=== PATIENT | male | born 1945 | race Caucasian/White ===

== ENCOUNTER 2024-10-31 18:13 | Inpatient (IN) | payer OTHER ==
[2024-10-31 21:11] LABS: Specific Gravity 1.027 (1.005-1.030); Sqamous Epithelial <5 /HPF (None Seen); Urine Bacteria None Seen /HPF (<20); Urine Bilirubin NEGATIVE (Negative); Urine Blood Trace (Negative); Urine Clarity Clear (Clear); Urine Color Yellow (Yellow); Urine Culture Reflex Order NOT NEEDED; Urine Glucose NEGATIVE (Negative); Urine Ketones TRACE (Negative); Urine Micro Reflex YN NO BILL MICROSCOPIC; Urine Mucus Slight /HPF (None Seen); Urine Nitrite NEGATIVE (Negative); Urine Protein 1+ (Negative); Urine RBC <5 /HPF (None Seen); Urine Urobilinogen Normal (Normal); Urine WBC <5 /HPF (<5)
[2024-10-31] MEDS ORDERED: methocarbamoL 500 MG TAB PO PRN (21:11)
[2024-10-31] MEDS ORDERED: MEMANTINE HCL 10 MG TABLET ONE (21:35)
[2024-10-31] MEDS: ROSUVASTATIN 10 MG TAB PO SCH (21:50)
[2024-10-31] MEDS: APIXABAN 5 MG TABLET PO SCH (21:51)
[2024-10-31] MEDS: gemfibroziL 600 MG TAB PO SCH (21:51)
[2024-10-31] MEDS: MEMANTINE HCL 10 MG TABLET PO SCH (21:51)
[2024-10-31] MEDS: EVOLOCUMAB 140 MG SQ SCH (23:15)
[2024-10-31] MEDS: CYANOCOBALAMIN 1000MCG/ML INJ IM SCH (23:45)
[2024-11-01 06:16] LABS: Absolute Eosinophils 0.3 K/uL (0-0.5); Absolute Monocytes 0.7 K/uL (0.1-1.3); Absolute Neutrophil 2.9 K/uL (1.8-8.0); Basophils % 0.6 % (0-1.3); Eosinophils % 6.9 % (0-4.4); Hematocrit 28.3 % (39.6-49.0); Hemoglobin 9.7 g/dL (13.6-17.9); Lymphocytes % 19.5 % (15.3-44.8); MCH 33.7 pg (27.0-35.0); MCHC 34.5 g/dL (32.0-36.0); MCV 97.7 fL (80-100); MPV 8.7 fL (7.6-11.3); Monocytes % 13.6 % (3.3-12.3); Neutrophils % 59.4 % (41.7-73.7); Nucleated Red Blood Cells % 0.1 % (0-0); Platelets 200 thou/uL (152-406); RBC Red Blood Cell Count 2.89 M/uL (4.33-5.43); Red Cell Distribution Width 13.7 % (12.1-15.2)
[2024-11-01 06:24] LABS: Albumin 2.7 g/dL (3.4-5.0); Magnesium 2.2 mg/dL (1.6-2.4); Prealbumin 13.8 mg/dL (20-40)
[2024-11-01] MEDS: PANTOPRAZOLE 40MG TABLET PO SCH (06:57)
[2024-11-01] MEDS: PREVAGEN 10 MG PO SCH (08:00)
[2024-11-01] MEDS: METHOTREXATE 2.5 MG TAB PO SCH (08:00)
[2024-11-01] MEDS: CYANOCOBALAMIN 1000MCG/ML INJ IM SCH (08:00)
[2024-11-01] MEDS: LIDOCAINE 4% PATCH TOP SCH (10:01)
[2024-11-01] MEDS: POTASSIUM CL SA 10 MEQ TAB PO ONE (10:03)
[2024-11-01] MEDS: DONEPEZIL HCL 5 MG TAB PO SCH (10:04)
[2024-11-01] MEDS: FOLIC ACID 1 MG TABLET PO SCH (10:05)
[2024-11-01] MEDS: FERROUS SULFATE 325 MG TAB PO SCH (10:05)
[2024-11-01] MEDS: AZITHROMYCIN 250 MG TAB PO SCH (10:06)
[2024-11-01] MEDS: TERAZOSIN HCL 5 MG CAP PO SCH (10:06)
[2024-11-01] MEDS: ENSURE ENLIVE 237 ML CAN PO SCH (10:09)
[2024-11-01] MEDS: CYANOCOBALAMIN 1000MCG/ML INJ SQ SCH (12:49)
[2024-11-01] MEDS: POTASSIUM CL SA 10 MEQ TAB PO SCH (12:49)
[2024-11-01] MEDS ORDERED: ENSURE HIGH PROTEIN 237 ML CAN PO PRN (14:46)
--- NOTE | 2024-11-01 15:32 | RAD REPORT ---
EXAMINATION: ONE VIEW CHEST XR CLINICAL INDICATION: sob on exertion TECHNIQUE: Frontal chest projection is submitted. Examination is limited by patient positioning and t echnique. COMPARISON: 01/19/2012 FINDINGS: Mild interstitial pulmonary edema suspected. The heart is upper limit of normal in size. No displaced fractures identified. IMPRESSION: Mild CHF versus volume overload pattern is suspected.
[2024-11-01] MEDS: MAGNESIUM OXIDE 400 MG TAB PO SCH (18:53)
[2024-11-01] MEDS ORDERED: TRAZODONE 50 MG TABLET ONE (22:50)
[2024-11-01] MEDS: TRAZODONE 50 MG TABLET PO PRN (23:15)
[2024-11-02 06:26] LABS: ALT/SGPT 49 U/L (16-61); AST/SGOT 64 U/L (15-37); Albumin 2.8 g/dL (3.4-5.0); Albumin/Globulin Ratio 0.9 (1.1-1.8); Alkaline Phosphatase 58 U/L (45-117); Anion Gap 7.4 mEq/L (5.0-15.0); BUN Blood Urea Nitrogen 17 mg/dL (7-18); Bicarbonate 24 mEq/L (21-32); Bilirubin Direct < 0.2 mg/dL (0-0.2); Bilirubin Indirect, Calculated 0.1 mg/dL (0.2-0.8); Bilirubin Total 0.3 mg/dL (0.2-1.0); Creatine Phosphokinase 393 U/L (39-308); Globulin 3.2 g/dL (2.3-3.5); Glomerular Filtration Rate 67 ml/min (=/>90); Glucose Level 127 mg/dL (74-106); Potassium 3.4 mEq/L (3.5-5.1); Sodium Level 142 mEq/L (136-145)
[2024-11-02] MEDS: PANTOPRAZOLE 40MG TABLET PO SCH (06:37)
--- NOTE | 2024-11-02 09:21 | HP ---
Date of Admission: 10/31/2024 Time Of Service: 8:30 a.m. Chief Complaint: "I am weak and I need to get stronger." History Of Present Illness: Mr. Zee is a 79-year-old right-handed patient with Alzheimer disease, coronary artery disease, hypertension, atrial fibrillation, prostate hypertrophy, rheumatoi d arthritis, on methotrexate, who per his was in the room, had been declining over the last few weeks in terms of his appetite, mobilization and had become increasingly weak. While home alone on , he was going to the restroom, fell off the toilet, and was not found by EMS for several ho urs. He was found floor with his pants inside-out. He was brought to [facility], where his workup showed elevated creatinine of , CK-MB was 6.5, anion gap 5 3, glucose 226, creatinine was elevated to 2, BUN 32, GFR down to 30.79. BNP was elevated at 794 wit h troponins 21.3 and normal liver functions. CT scan of the head showed mild brain atrophy with lawrence ventricular white matter small vessel ischemic disease without acute intracranial processes such as a cute stroke or hemorrhage. CT spine and neck was negative. Chest x-ray did show a viral pneumonia p attern with decreased lung volumes, small bilateral lower lobe atelectasis, and cardiomegaly. He was admitted for treatment of rhabdomyolysis with IV hydration. Seen by the Renal Service and Cardiolog y Service. He did have a urinalysis, which was done and ruled out for urinary tract infection. COVI D testing was negative. Found to have hypokalemia, which was addressed on October 29, 2024. On tele metry, he did have atrial fibrillation and is on Eliquis b.i.d. His CHF was addressed with alexandra parker, hypertension addressed as well as his prostate hypertrophy. He was evaluated by Sebastian goddard and found to require minimum assistance to contact guard assistance for all activities of daily living, ambulating only 20 feet, gets very short of breath and he says his big complaint is he has t o stop and recover before going again. He has some trouble also with swallowing per his and he has to eat and chew very slowly to abort choking. The patient of course will benefit from speech the rapy in addition to physical and occupational therapy as an aggressive inpatient rehabilitation. If he is to be discharged home or to a long term , he will not drive and will likely wor sen and require rehospitalization. Therefore, it is necessary [facility] for him to receive physical, occupational, and speech therapy while he received aggressive management of his comorbid conditions. Past Medical History: As noted above. X-ray/imaging: Chest x-ray shows decreased lung volumes, small bilateral lower lobe atelectasis, les s likely infiltrative cardiomegaly. An EKG showed the following his treatment, sinus tachycardia. C ervical spine CT scan on 10/28 shows no acute fracture or subluxation of the cervical spine. CT scan of the head on 10/28 shows no acute intracranial abnormalities. Allergies: CLARITHROMYCIN, DOXYCYCLINE, GRASS, POLLEN, LEVOFLOXACIN, PENICILLIN, AND SULFA ANTIBIOTI CS. Current Medications: Eliquis 5 mg twice daily, azithromycin 500 mg daily from 11/01 to 11/04, vitami n B12 injections 1000 mcg daily, Aricept 10 mg daily, ferrous sulfate 325 mg daily, folic acid 1 mg d aily, gemfibrozil 600 mg twice daily, lidocaine patch apply 2 patches topically daily, Namenda 10 mg twice daily, Robaxin 500 mg 3 times daily, methotrexate 20 mg every 7th day, Ensure Enlive 237 mL twi ce daily, Protonix 40 mg daily, daily, Crestor 40 mg at bedtime, Hytrin 10 mg at bedtime. Laboratory Studies: White blood cell count 4.9, hemoglobin 9.7, platelets 200. Sodium 140, potassiu m 3.0 and that is being replaced with potassium, chloride 111, carbon dioxide 24, BUN 21, creatinine 1.05, glucose 120, calcium 8.7, magnesium 2.2, albumin 2.7, prealbumin 13.8, and urinalysi s shows trace ketones, trace blood, 1+ total protein. Family History: Noncontributory. Review of Systems: He does report some significant shortness of breath, difficulty ambulating only short distances befor e shortness of breath and fatigue stop him. Mild constipation. Mild myalgias, arthralgias. No rash . No other complaints on a 10-point system review. Current Level Of Functioning: Currently supervision for eating, oral hygiene. Moderate assistance, toileting. Maximum assistance for showering. Moderate assistance for upper body dressing and lower body dressing along with donning and doffing footwear. For rolling [id number] from sit to stand a nd lying to sitting on side of bed, contact guard assistance. For transfer to a chair, wheelchair to toilet, contact guard assistance. For ambulation with a rolling walker, he covered 20 feet with con tact guard assistance. Physical Examination: Vital Signs: Blood pressure 152/71, pulse 73, respiratory rate 18, temperature 97.5, oxygen saturati on 97%. Weight 230 pounds, height 5 feet 10 inches, BMI 33.0. General: Mr. Zee is able to hold self inside the bed. His is at bedside. HEENT: He is normocephalic, atraumatic. Sclerae anicteric. Oropharynx is pink and moist. Neck: Supple. Chest: Clear. Heart: Regular. Abdomen: Soft. Extremities: Very much trace to no edema in the lower extremities. Neurological: He is alert and oriented to situation, place, person. Does follow commands appropriat scott also with his responses. No obvious cranial nerve deficits. Mild diffuse weakness upper and low er extremities 4/5. Stocking-glove loss, light touch, temperature depressed. Reflexes symmetric. Rehab And Medical Assessment And Plan: Mr. Zee is a 79-year-old patient admitted to the inpatient rehabilitation unit with impairment category 09, orthopedic. His impairment group code is 08.9, othe r orthopedic. Etiologic diagnosis is rhabdomyolysis. Additional comorbidities; atrial fibrillation, acute renal injury, acute on chronic encephalopathy, benign prostate hypertrophy, coronary artery di sease, cardiomegaly, congestive heart failure, decreased mobility, decreased physical functioning, hy pertension. Plan: 1.He will have physical, occupational, and speech therapy 3.5 hours, 5 of 7 days. In addition, we w ill continue aggressive management of his blood pressure and prostate hypertrophy. He will have hold parameters for systolic blood pressure less than 120. Ferrous sulfate for anemia and donepezil and for dementia twice and continued for his potential urine and chest infections, Eliquis for atrial fibrillation to reduce risk of stroke and deep vein thrombus, Robaxin for muscle spasms, whic h he says he has some across the back, methotrexate will be continued as scheduled, Protonix for GE r eflux, potassium replacement on board, Crestor for his dyslipidemia. Comorbidities That Are Impacting Rehabilitation: Possibility of Crestor aggravating his rhabdomyolys is should be considered. However, the creatinine and CPK will be followed. A KUB will be done and i f need be liver function studies as well to determine if medication needs to be adjusted. Potassium replacement on board and will contribute to significant weakness and his recheck will be done tomorro w. For GE reflux, he has Protonix on board to significantly decrease the risk of peptic ulcer format ion and anemic as noted and it was addressed as well. Again, DVT prophylaxis and stroke r isk reduction addressed. Rehab Specific Plan: Mr. Zee will have physical, occupational, and speech therapy for 3.5 hours, 5 of 7 days to improve his ability to transfer from his bed to a chair to a rolling walker to begin to mobilize the wheelchair, on and off the toilet, in and out of the tub. His goals will be able to am bulate more than household distances if he is able to do at least 250 feet around the unit with modif ied independence, up and down 10 steps with modified independence, propel a wheelchair 250 feet with modified independence. Also, cognition should be addressed and will be addressed to help him make sa fe decisions to improve his cognitive functioning, safety awareness, and information processing . Mr. Zee and his had good understanding of the process [facility] and how he will benefit from physical, occupational, and speech therapy. They will hav e 24 hours a day, 7 days a week skilled rehabilitation nursing, daily physician evaluation and manage ment, and social service evaluation and management for discharge planning, home equipment, continuing therapy, and physician followup. If need be, additional help from the hospitalist service will be s ought. Barriers To Discharge: At this point, he has been declining for a few weeks and become significantly debilitated. He has ability to go back home, may be hampered by how fast he recovers and so long term may have to be considered; however, the goal is to have him go home instead of skilled nursi ng. Potential for infection is present and may require IV antibiotics to be considered, but that at this point it will be oral. If he needs multiple antibiotics IV, he may have to go into a long-term acute care setting. Length Of Stay: About 12-14 days. Disposition: Home with family. Continuing therapy via Home Health. Prognosis: Good. Code Status: Full code. Rehab Specific Goals: 1.Mr. Zee to become independent with upper and lower body dressing, donning and doffing of footwea r. 2.Independent with ambulating 250 feet with a rolling walker and mobilize a wheelchair 250 feet and up and down 10 steps with bilateral handrails. 3.With min assist to be able to perform safety awareness issues to make good decisions to reduce his risk of falling along with the help of family to be able to return home safely. The above goals were reviewed with Mr. Zee and his and they are in agreement. By signing this document, I acknowledge I personally performed a full physical examination on Mr. Juan love no later than 24 hours after his admission to the inpatient rehabilitation facility and determined that he is able to tolerate the above course of treatment at an intensive level for a reasonable per iod of time. A detailed individualized plan of care for him will be completed by hospital day 4 base d on the preadmission screen, history and physical, and therapy evaluations. SIA Voice ID: [id number]
[2024-11-02] MEDS: POTASSIUM CL SA 10 MEQ TAB PO ONE ×2 (15:08→17:00)
[2024-11-02] MEDS: NA CHLORIDE 0.9% 1,000 ML IV SCH (15:09)
[2024-11-02] MEDS: TRAZODONE 50 MG TABLET PO SCH (20:43)
[2024-11-02] MEDS ORDERED: TRAZODONE 50 MG TABLET PO SCH (21:00)
--- NOTE | 2024-11-02 22:43 | PN ---
Date of Progress Note: 11/02/2024 Time Of Service: 1:20 p.m. Subjective: Mr. Zee is resting in his bed. His son is at the bedside. He is so far very happy wi th his progress, improving his strength, his coordination, and transferring and denies any significan t pain. He still has some significant difficulty with cognitive functioning, decision making, and stroud s been up at night and may tend to walk out towards nurses' station. Did report some difficulty with sleep at night. Son said he was up, pacing around up until about one or so in the morning. Objective: No fevers, chills, nausea, vomiting. No myalgias, arthralgias, rash, or other complaints . Physical Examination: Vital Signs: Blood pressure 153/71, pulse of 71, respiratory rate 18, temperature 98.0, oxygen satur ation 97%. General: Mr. Zee again is resting comfortably in bed. HEENT: He appears to be normocephalic, atraumatic. Sclerae anicteric. Oropharynx pink and moist. Neck: Supple. Chest: Clear. Heart: Regular. Extremities: No significant clubbing, cyanosis, or edema. Mild diffuse weakness, upper and lower ex tremities. Laboratory Studies: White blood cell count 4.9, hemoglobin 9.7, platelets are 200. Sodium 142; pota ssium 3.4, it was 3.8 after replacement yesterday; chloride 114; carbon dioxide 24; BUN 17; creatinin e 1.12; glucose 127; calcium 8.6. AST 64, slightly elevated. ALT 49. Creatine kinase 393. Prealbu min 13.8. Albumin 2.8. Imaging: Chest x-ray, that was on the , showed mild CHF versus overload pattern suspected. As n oted, the patient will have incentive spirometry to help clear fluid from his respiratory system. Medications: Eliquis 5 mg twice daily, azithromycin 500 mg daily from 11/01 to 11/04, vitamin B12 10 00 mcg subcutaneously done every 30 days, Aricept 10 mg daily, ferrous sulfate 325 mg daily, folic ac id 1 mg daily, gemfibrozil 600 mg twice daily, apply lidocaine patch to areas of pain in the back rosa elena ly, magnesium oxide 400 mg twice daily, Namenda 10 mg twice daily, Robaxin 5 mg 3 times daily, methot rexate 20 mg every 7th day, Ensure Enlive 237 mL twice daily, Protonix 40 mg daily, potassium 20 mEq daily, rosuvastatin 40 mg at bedtime. He is receiving IV fluids at 75 cc an hour normal saline, Hytr in 10 mg daily, Desyrel 100 mg at bedtime. Progress Made With Physical, Occupational, And Speech Therapy: Today, with physical therapy, he was able to perform 10 squats with low mat while holding onto the blue ball. He did ambulate 250 feet wi th supervision in a rolling walker and another 300 feet and 150 feet with supervision without an assi stive device. He was up and down 25 steps with bilateral handrails with standby assistance. With hi s occupational therapy, performed toileting with supervision. He did multiple transfers to bed, toil et, mat with independence. With his speech, he recalled 1 of 2 unrelated pictures after 3 minutes on the first attempt, and 2 of 2 after 3 minutes on a second attempt. He recalled 2 of 2 pictures afte r 5 minutes again, and 3 of 3 after 3 minutes with cues. Assessment And Plan: Mr. Zee is a 79-year-old patient, admitted to the rehabilitation unit with rh abdomyolysis. He is recovering very well, receiving some IV fluids at this point. His laboratory st udies do show slightly elevated glucose, slightly elevated liver function; AST, otherwise normal samantha line phosphatase and ALT. His creatine kinase was , it is down from around 5000 prior to h im coming to the rehab unit. A repeat will be done after he receives IV fluids. Otherwise, comorbid ities include his insomnia, prostate hypertrophy, dyslipidemia, cognitive impairment, and the infecti on for which he is treated, continuation of UTI prior to him coming to the rehab unit. STAR/SHANNON Voice ID: [id number] Report ID: [id number]
[2024-11-03 05:27] VITALS: BMI 33.2
[2024-11-03 06:16] LABS: Absolute Eosinophils 0.3 K/uL (0-0.5); Absolute Lymphocytes (CBC) 1.2 K/uL (0.7-4.9); Absolute Monocytes 0.7 K/uL (0.1-1.3); Absolute Neutrophil 3.2 K/uL (1.8-8.0); Basophils % 0.7 % (0-1.3); Eosinophils % 6.4 % (0-4.4); Hematocrit 26.7 % (39.6-49.0); Hemoglobin 9.6 g/dL (13.6-17.9); Lymphocytes % 21.7 % (15.3-44.8); MCH 35.2 pg (27.0-35.0); MCV 97.6 fL (80-100); MPV 8.1 fL (7.6-11.3); Monocytes % 12.1 % (3.3-12.3); Neutrophils % 59.1 % (41.7-73.7); Nucleated Red Blood Cells % 0.2 % (0-0); Platelets 242 thou/uL (152-406); RBC Red Blood Cell Count 2.73 M/uL (4.33-5.43); Red Cell Distribution Width 13.9 % (12.1-15.2)
[2024-11-03 06:21] LABS: Albumin 2.7 g/dL (3.4-5.0); Anion Gap 7.4 mEq/L (5.0-15.0); Magnesium 1.9 mg/dL (1.6-2.4); Potassium 3.4 mEq/L (3.5-5.1); Prealbumin 15.2 mg/dL (20-40)
--- NOTE | 2024-11-04 00:55 | PN ---
Time Of Service: 1 p.m. Subjective: Mr. Zee is resting comfortably in bed. He is very happy with his therapy so far. His son who is a [facility] [employer] remotely piloted vehicle controller said he is also happy with how his father is doing in terms of recovery of strength. He has no new complaints today. He is working with speech pathologist. Objective: No fevers, chills, nausea, vomiting. No myalgias, arthralgias, rash, or psychiatric comp laints. Physical Examination: Vital Signs: Blood pressure 152/72, pulse 72, respiratory rate 16, temperature 98.2, oxygen saturati on 97%. General: Again, Mr. Zee is doing well. HEENT: Normocephalic, atraumatic. Sclerae anicteric. Oropharynx moist. Neck: Supple. Chest: Clear. Extremities: No clubbing, cyanosis, or edema noted. Laboratory Studies: Today, white blood cell count is 5.4, hemoglobin 9.6, platelets 242. Sodium 144 ; potassium 3.4, does have replacement on board; chloride 117; carbon dioxide 23; BUN 14; creatinine 1.05; glucose 133. Calcium 8.6, magnesium 1.9, albumin 2.7, prealbumin 15.2. Medications: Medications have been reviewed. He does have the azithromycin continued to end on harvey . His methotrexate 20 mg every 7th day to be given on the . He has potassium replacement on board, 20 mEq daily. His other medications have been continued unchanged. Progress Made With Physical, Occupational, And Speech Therapy: With physical therapy today, he was a ble to ambulate throughout on the unit and outside the hospital independently without an assistive de vice. He had stable stand. He ascended and descended 15 steps independently. [id number] transf er done independently, all without the use of assistive device. Did very well with all of his physic al therapy. With occupational therapy, supervision to wash hands and wipe his bottom. Supervision i s to do so thoroughly like that was needed. With speech, he did have short-term memory deficits affe cting his daily function and safety. Did recall picture seen details with 60% accuracy after 5 minut es. Cause and effect situations explained by the patient given 2 regional answers with 95% accuracy. Assessment And Plan: Mr. Zee is a 79-year-old patient in the rehabilitation unit with rhabdomyolys is. He also has much improved. Decreased mobility, decreased physical functioning, prostate hypertr ophy, insomnia, dyslipidemia, hypokalemia, gastroesophageal reflux, malnutrition, dementia, and poor energy. Completed treatment for urinary tract infection and potential for pneumonia, although chest x-ray does show mild congestive heart failure, volume overload pattern, and not pneumonia. He is con tinuing antibiotics, which he was sent with when he come to the unit. He will continue otherwise wit h physical, occupational, and speech therapy 3.5 hours, 5 of 7 days. LB/MODL Voice ID: [id number] Report ID: [id number]
--- NOTE | 2024-11-04 07:39 | RAD REPORT ---
Procedure: Chest Single View HISTORY: Shortness of breath COMPARISON: November 01, 2023 FINDINGS: Bilateral pulmonary opacities appear resolved. The lungs appear clear of acute infiltrate. No significant pleural effusion noted. The heart is normal size. IMPRESSION: Resolution of the mild bilateral pulmonary opacities
--- NOTE | 2024-11-04 13:13 | P.RH.PN ---
Estimated Length of Stay: 9 Expected Discharge Date: 11/08/24 Discharge Disposition Plan: Home Family Support: Yes Rolled [employer] Worker Goal: Mobility, Transfers, Self Care Vital Signs: Last Vital Signs Temp 97.9 F 11/04/24 08:00 Pulse 65 11/04/24 08:00 Resp 18 11/04/24 08:00 BP 133/65 11/04/24 08:00 Pulse Ox 95 11/04/24 08:00 Laboratory: Laboratory Last Values WBC 5.40 thou/uL (4.3-10.9) 11/03/24 05:38 RBC 2.73 M/uL (4.33-5.43) L 11/03/24 05:38 Hgb 9.6 g/dL (13.6-17.9) L 11/03/24 05:38 Hct 26.7 % (39.6-49.0) L 11/03/24 05:38 MCV 97.6 fL (80-100) 11/03/24 05:38 MCH 35.2 pg (27.0-35.0) H 11/03/24 05:38 MCHC 36.0 g/dL (32.0-36.0) 11/03/24 05:38 RDW 13.9 % (12.1-15.2) 11/03/24 05:38 Plt Count 242 thou/uL (152-406) 11/03/24 05:38 MPV 8.1 fL (7.6-11.3) 11/03/24 05:38 Neutrophils % 59.1 % (41.7-73.7) 11/03/24 05:38 Lymphocytes % 21.7 % (15.3-44.8) 11/03/24 05:38 Monocytes % 12.1 % (3.3-12.3) 11/03/24 05:38 Eosinophils % 6.4 % (0-4.4) H 11/03/24 05:38 Basophils % 0.7 % (0-1.3) 11/03/24 05:38 Absolute Neutrophils 3.2 K/uL (1.8-8.0) 11/03/24 05:38 Absolute Lymphocytes 1.2 K/uL (0.7-4.9) 11/03/24 05:38 Absolute Monocytes 0.7 K/uL (0.1-1.3) 11/03/24 05:38 Absolute Eosinophils 0.3 K/uL (0-0.5) 11/03/24 05:38 Absolute Basophils 0.0 K/uL (0-0.5) 11/03/24 05:38 Sodium 144 mEq/L (136-145) 11/03/24 05:38 Potassium 3.7 mEq/L (3.5-5.1) 11/04/24 07:26 Chloride 117 mEq/L (98-107) H 11/03/24 05:38 Carbon Dioxide 23 mEq/L (21-32) 11/03/24 05:38 Anion Gap 7.4 mEq/L (5.0-15.0) 11/03/24 05:38 BUN 14 mg/dL (7-18) 11/03/24 05:38 Creatinine 1.05 mg/dL (0.70-1.30) 11/03/24 05:38 Est GFR (CKD-EPI) 72 ml/min (=/>90) L 11/03/24 05:38 Glucose 133 mg/dL (74-106) H 11/03/24 05:38 Calcium 8.6 mg/dL (8.5-10.1) 11/03/24 05:38 Magnesium 1.9 mg/dL (1.6-2.4) 11/03/24 05:38 Total Bilirubin 0.3 mg/dL (0.2-1.0) 11/02/24 05:46 Direct Bilirubin < 0.2 mg/dL (0-0.2) 11/02/24 05:46 Indirect Bilirubin 0.1 mg/dL (0.2-0.8) L 11/02/24 05:46 AST 64 U/L (15-37) H 11/02/24 05:46 ALT 49 U/L (16-61) 11/02/24 05:46 Alkaline Phosphatase 58 U/L (45-117) 11/02/24 05:46 Creatine Kinase 200 U/L (39-308) 11/03/24 05:38 Serum Total Protein 6.0 g/dL (6.4-8.2) L 11/02/24 05:46 Albumin 2.7 g/dL (3.4-5.0) L 11/03/24 05:38 Globulin 3.2 g/dL (2.3-3.5) 11/02/24 05:46 Albumin/Globulin Ratio 0.9 (1.1-1.8) L 11/02/24 05:46 Prealbumin 15.2 mg/dL (20-40) L 11/03/24 05:38 Urine Color Yellow (Yellow) 10/31/24 20:10 Urine Clarity Clear (Clear) 10/31/24 20:10 Urine pH 6.0 (5.0-7.0) 10/31/24 20:10 Ur Specific [place] 1.027 (1.005-1.030) 10/31/24 20:10 Glucose (UA)(Auto) Negative (Negative) 10/31/24 20:10 Urine Ketones Trace (Negative) H 10/31/24 20:10 Urine Blood Trace (Negative) H 10/31/24 20:10 Urine Nitrite Negative (Negative) 10/31/24 20:10 Urine Bilirubin Negative (Negative) 10/31/24 20:10 Urine Urobilinogen Normal (Normal) 10/31/24 20:10 Ur Leukocyte Esterase Negative Guero/uL (Negative) 10/31/24 20:10 Urine RBC <5 /HPF (None Seen) 10/31/24 20:10 Urine WBC <5 /HPF (<5) 10/31/24 20:10 Ur Squamous Epith Cells <5 /HPF (None Seen) 10/31/24 20:10 Urine Bacteria None seen /HPF (<20) 10/31/24 20:10 Urine Mucus Slight /HPF (None Seen) 10/31/24 20:10 Urine Culture Reflexed Not needed 10/31/24 20:10 Urine Total Protein 1+ (Negative) H 10/31/24 20:10 Weight: 231 lb 9.6 oz Wound Present: No Closed Surgical Incision Present: No Negative Pressure Wound Therapy Present: No Physician Update: Labs reviewed and are stable. BIMS 11, SLUMS 24. With repeating instructions. Occupational therapy 1/4 LTG and all STG. Met 5/6 LTG and all STG. Walks without an assistive device. Up and down 15 steps. Comment: Skin biopsy sites: headx2,chestx1,backx1 all healing Summary: Patient's care plan and intermediate accountant goals have been reviewed and revised as necessary. Please see the Rehabilitation Signature page for all necessary signatures.
[2024-11-04] MEDS: MELATONIN 3 MG TABLET PO SCH (19:31)
[2024-11-05 08:12] VITALS: BP 146/67; TEMP 97.5
[2024-11-06] MEDS ORDERED: METHOTREXATE 2.5 MG TAB PO SCH (08:00)
[2024-11-07] MEDS ORDERED: METHOTREXATE 2.5 MG TAB PO SCH (08:00)
== END 2024-11-05 10:15 | disposition home health service (06) | DRG 558 ==
LOC: 5TH 19:50
PROVIDERS: ADMIT Psychiatry & Neurology Neurology with Special Qualifications in Child Neurology; ATTEND Psychiatry & Neurology Neurology with Special Qualifications in Child Neurology
DX: M62.82 Rhabdomyolysis (principal); N17.9 Acute kidney failure, unspecified; G93.40 Encephalopathy, unspecified; N39.0 Urinary tract infection, site not specified; E46 Unspecified protein-calorie malnutrition; I48.91 Unspecified atrial fibrillation; N40.0 Benign prostatic hyperplasia without lower urinary tract symptoms; I25.10 Atherosclerotic heart disease of native coronary artery without angina pectoris; I51.7 Cardiomegaly; I10 Essential (primary) hypertension; D64.9 Anemia, unspecified; F03.90 Unspecified dementia, unspecified severity, without behavioral disturbance, psychotic disturbance, mood disturbance, and anxiety; K21.9 Gastro-esophageal reflux disease without esophagitis; E78.5 Hyperlipidemia, unspecified; E87.6 Hypokalemia; I50.9 Heart failure, unspecified
CPT/HCPCS: 36415; 71045; 80048; 80076; 81001; 82040; 82550; 83735; 84132; 84134; 85025; 87086; 87088; 92523; 94010; 97112; 97116; 97129; 97163; 97165; 97530; 97542; J2003; J3420; J7030; J8610